=== PATIENT | male | born 1955 | race Caucasian/White ===

== ENCOUNTER 2022-05-21 19:52 | Inpatient (IN) | payer OTHER ==
[2022-05-21] MEDS ORDERED: MAGNESIUM CITRATE 300 ML BOTTLE PO PRN (20:51)
[2022-05-21] MEDS ORDERED: NICOTINE POLACRILEX 2 MG GUM BUC PRN (20:51)
[2022-05-21] MEDS ORDERED: P-EPHED 60MG/TRIPROLIDI 2.5MG TABLET PO PRN (20:51)
[2022-05-21] MEDS ORDERED: ONDANSETRON *ODT* 4 MG TABLET SL PRN (20:51)
[2022-05-21] MEDS ORDERED: guaiFENesin 200 MG/10 ML 10 ML UNIT-DOSE CUPS PO PRN (20:51)
[2022-05-21] MEDS ORDERED: BENZOCAINE/MENTHOL (CHLORASEPTIC ) LOZENGE MM PRN (20:51)
[2022-05-21] MEDS ORDERED: diazePAM 5 MG TABLET PO PRN (20:51)
[2022-05-21] MEDS ORDERED: IBUPROFEN 600 MG TABLET (FP) PO PRN (20:51)
[2022-05-21] MEDS ORDERED: DICYCLOMINE HCL 10 MG CAPSULE PO PRN (20:51)
[2022-05-21] MEDS ORDERED: LOPERAMIDE HCL 2 MG CAPSULE PO PRN (20:51)
[2022-05-21] MEDS ORDERED: ACETAMINOPHEN 325 MG TABLET (FP) PO PRN ×2 (20:51)
[2022-05-21] MEDS ORDERED: MAG HYDROX/AL HYDROX/SIMETH 30 ML UNIT-DOSE CUP PO PRN (20:51)
[2022-05-21] MEDS ORDERED: IBUPROFEN 400 MG TABLET (FP) PO PRN (20:51)
[2022-05-21] MEDS ORDERED: MAGNESIUM HYDROX 2400MG/30ML ORAL SUSPENSION 30 ML CUP PO PRN (20:51)
[2022-05-21] MEDS ORDERED: BISMUTH SUBSALICYLATE 524 MG/30 ML PO PRN (20:51)
[2022-05-21 20:53] VITALS: BMI 37.2
[2022-05-21] MEDS ORDERED: cloNIDine HCL 0.1 MG TABLET PO ONE (21:46)
[2022-05-21] MEDS ORDERED: cloNIDine HCL 0.1 MG TABLET ONE (22:20)
[2022-05-22] MEDS: THIAMINE HCL 100 MG TABLET (FP) PO SCH ×2 (01:09→22:44)
[2022-05-22] MEDS: diazePAM 5 MG TABLET PO SCH ×5 (01:09→22:44)
[2022-05-22] MEDS: METHOCARBAMOL 500 MG TABLET PO PRN ×2 (01:09→10:10)
[2022-05-22] MEDS: ATORVASTATIN CA 40 MG TABLET (FP) PO SCH ×2 (01:09→22:44)
[2022-05-22] MEDS: MELATONIN 5 MG TABLETS PO SCH ×2 (01:09→22:44)
[2022-05-22] MEDS: POLYMYXIN B SULFATE/TMP 10 ML OPHTHALMIC SOLUTION OU SCH ×6 (01:10→22:46)
[2022-05-22] MEDS: metFORMIN HCL 500 MG TABLET (FP) PO SCH ×2 (06:05→16:46)
[2022-05-22 09:38] LABS: ALBUMIN 3.1 g/dl (3.4-5.0)
[2022-05-22 09:39] LABS: BLOOD UREA NITROGEN 16.8 mg/dL (7-18); CALCIUM 8.3 mg/dL (8.5-10.1)
[2022-05-22 09:43] LABS: BILIRUBIN,TOTAL 0.8 mg/dL (0.2-1); TOT PROT 5.6 g/dl (6.4-8.2)
[2022-05-22 09:49] LABS: HEMATOCRIT 42.2 % (35.4-49); HEMOGLOBIN 14.4 GM/dL (11.7-16.9); MCH 34.4 pg (25.7-33.7); MCHC 34.1 g/dl (32.0-35.9); MEAN CELL VOLUME 100.8 fl (80-96); MEAN PLT VOLUME 9.2 fl (7.5-11.1); PLATELET COUNT 127 10^3/uL (134-434); RBC 4.19 M/mm3 (4.00-5.60); RDW 13.7 % (11.9-15.9); WHITE BLOOD COUNT 4.9 K/mm3 (4.0-10.0)
[2022-05-22] MEDS ORDERED: SEMAGLUTIDE 2 MG/1.5 ML SQ SCH (10:00)
[2022-05-22] MEDS: PRENATAL VITAMINS W/ FOLIC ACID TABLET (FP) PO SCH (10:10)
[2022-05-22] MEDS: NICOTINE 14 MG/24 HOURS TOPICAL PATCH TD SCH (10:13)
[2022-05-22] MEDS: LOSARTAN POTASSIUM 25 MG TABLET PO SCH (10:13)
[2022-05-22] MEDS ORDERED: SEMAGLUTIDE 0.25 MG SQ SCH (14:48)
[2022-05-23] MEDS ORDERED: diazePAM 5 MG TABLET PO SCH (06:00)
[2022-05-23] MEDS: POLYMYXIN B SULFATE/TMP 10 ML OPHTHALMIC SOLUTION OU SCH ×3 (06:01→13:54)
[2022-05-23] MEDS: metFORMIN HCL 500 MG TABLET (FP) PO SCH (06:01)
[2022-05-23] MEDS: PRENATAL VITAMINS W/ FOLIC ACID TABLET (FP) PO SCH (10:23)
[2022-05-23] MEDS: NICOTINE 14 MG/24 HOURS TOPICAL PATCH TD SCH (10:24)
[2022-05-23] MEDS ORDERED: LOSARTAN POTASSIUM 50 MG TABLET PO SCH (11:00)
[2022-05-23] MEDS ORDERED: INSULIN SLIDING SCALE (NOVOLOG) 1 VIAL SQ SCH (11:00)
[2022-05-23] MEDS: LOSARTAN POTASSIUM 25 MG TABLET PO SCH (11:03)
[2022-05-23 13:13] VITALS: BP 167/103; PULSE 96; TEMP 96.2
[2022-05-24] MEDS ORDERED: diazePAM 5 MG TABLET PO SCH (06:00)
[2022-05-25] MEDS ORDERED: diazePAM 5 MG TABLET PO ONE (06:00)
== END 2022-05-23 14:05 | disposition left against medical advice (07) | DRG 894 ==
LOC: YASAS 19:52 → Y6N 21:31
PROVIDERS: ADMIT Allergy & Immunology; ATTEND Surgery
PROC: HZ2ZZZZ Detoxification Services for Substance Abuse Treatment (ICD-10-PCS; principal; 2022-05-21)
DX: F10.230 Alcohol dependence with withdrawal, uncomplicated (principal); F33.9 Major depressive disorder, recurrent, unspecified; F10.282 Alcohol dependence with alcohol-induced sleep disorder; F17.210 Nicotine dependence, cigarettes, uncomplicated; I10 Essential (primary) hypertension; E78.5 Hyperlipidemia, unspecified; E11.9 Type 2 diabetes mellitus without complications; K21.9 Gastro-esophageal reflux disease without esophagitis; H10.023 Other mucopurulent conjunctivitis, bilateral; R00.0 Tachycardia, unspecified; N40.0 Benign prostatic hyperplasia without lower urinary tract symptoms; N39.498 Other specified urinary incontinence; E66.09 Other obesity due to excess calories; Z68.37 Body mass index [BMI] 37.0-37.9, adult; Z79.4 Long term (current) use of insulin
CPT/HCPCS: 36415; 80053; 82962; 85027; 86780; 93005; 93010; C9803-CS; J0735; U0003; U0005